=== PATIENT | male | born 1935 | race African-American/Black ===

== ENCOUNTER 2016-07-30 10:03 | Emergency (ER) | payer OTHER ==
[~2016-07-30] VITALS: Ht 167.6 cm; Wt 84.9 kg
[~2016-07-30 10:03] MED LIST: ADALAT CC90 MG PO; Aspirin E.C. PO; BISOPROLOL-HCT1 EACH PO; LISINOPRIL40 MG PO
[2016-07-30 10:43] LABS: HEMATOCRIT 37.5 % (38.0-50.0); MCH 32.7 PG (29.0-34.0); MCHC 33.9 G/DL (30.0-36.0); MCV 96.6 FL (86-99); MEAN PLAT.VOLUME 10.4 uM^3 (9.0-12.4); PLATELET COUNT 183 K/uL (156-360); RBC DIS.WIDTH-CV 12.4 % (11.8-14.6); RBC DIS.WIDTH-SD 42.2 % (39-53); RED BLOOD COUNT 3.88 M/uL (4.00-5.50); WHITE BLOOD COUNT 14.9 K/uL (4.1-10.2)
[2016-07-30 10:55] LABS: CHLORIDE 97 mEq/L (99-109); POTASSIUM 3.4 mEq/L (3.7-5.4); SODIUM 133 mEq/L (136-147)
[2016-07-30 10:57] LABS: GLUCOSE 134 mg/dL (70-99)
[2016-07-30 10:58] LABS: ANION GAP 11 MEQ/L (2-14)
[2016-07-30 10:59] LABS: TOTAL BILIRUBIN 1.4 mg/dL (0.0-1.0)
[2016-07-30 11:00] LABS: ALKALINE PHOSPHATASE 72 IU/L (3-129)
[2016-07-30 11:01] LABS: GFR ESTIMATE (CALCULATED) > 59 mL/min/
[2016-07-30 11:02] LABS: UREA NITROGEN (BUN) 15 mg/dL (9-23)
[2016-07-30 11:04] LABS: LIPASE 16 U/L (1.0-51.0)
[2016-07-30 11:15] LABS: EOSINOPHIL (%) 0.1 % (0-5); HEMATOLOGY COMMENT 1 SMEAR COMPATIBLE; IMMATURE GRANULOCYTE (%) 0.5 % (0.0-0.7); IMMATURE GRANULOCYTE COUNT 0.8 K/uL; LYMPHOCYTE COUNT 1.3 K/uL (1.0-2.8); MONOCYTE (%) 12.2 % (3-12); MONOCYTE COUNT 1.8 K/uL (0-0.8); NEUTROPHIL (%) 78.7 % (45-76); NEUTROPHIL COUNT 11.8 K/uL (1.8-6.4); USER ID SDF
[2016-07-30 12:52] LABS: ADD MIUA? YES; BILIRUBIN NEGATIVE; BLOOD SMALL; COLOR YELLOW ((YELLOW)); GLUCOSE (STRIP) NEGATIVE; KETONES NEGATIVE; LEUKOCYTES LARGE; NITRITE POSITIVE; PH, URINE 5.5 (5-8); PROTEIN (STRIP) TRACE; SPECIFIC GRAVITY 1.042 (1.000-1.030)
[2016-07-30] MEDS ORDERED: LEVAQUIN500 MG PO (13:05)
[2016-07-30] MEDS ORDERED: ULTRAM50 MG PO (13:05)
[2016-07-30 13:21] LABS: BACTERIA 2+; CASTS PRESENT /LPF; CRYSTALS NONE SEEN; EPITHELIAL CELLS RARE; MUCUS NONE SEEN; RED BLOOD CELLS 0-5 /HPF (0-5); UCUL ADDED? YES; WHITE BLOOD CELLS TNTC /HPF (0-5); WHITE CELL CASTS 0-5 /LPF
[2016-07-30 14:01] VITALS: BP 145/75
== END 2016-07-30 14:21 | disposition home or self-care (01) ==
LOC: EME 10:03
PROVIDERS: Emergency Medicine
DX: N45.2 Orchitis (principal); I10 Essential (primary) hypertension; Z79.82 Long term (current) use of aspirin; Z87.891 Personal history of nicotine dependence
CPT/HCPCS: 74177; 76870; 80053; 81003; 83605; 83690; 85025; 87077; 87086; 87186; 99281; 99285; J1170; J2405; J7030